=== PATIENT | male | born 1980 ===

== ENCOUNTER 2025-01-06 09:12 | Emergency (ER) | payer BC ==
[2025-01-06] MEDS ORDERED: Ketorolac 30 MG/ML SDV IVPUSH ONE (09:22)
[2025-01-06] MEDS: Sodium Chloride 0.9% 1,000 ML IV ONE (09:44)
[2025-01-06] MEDS: droPERidol 2.5 MG/ML SDV IVPUSH ONE (09:45)
[2025-01-06] MEDS: Pantoprazole 40 MG in Sodium Chloride 0.9% 10 ML IVPUSH ONE (09:46)
[2025-01-06 09:54] LABS: BASOPHILS ABSOLUTE AUTO 0.07 K/uL (0.00-0.20); BASOPHILS PERCENT AUTO 0.9 % (0.0-1.0); EOSINOPHILS ABSOLUTE AUTO 0.23 K/uL (0.00-0.45); EOSINOPHILS PERCENT AUTO 2.8 % (0.0-6.0); HEMATOCRIT 46.7 % (42.0-52.0); IMMATURE GRAN ABSOLUTE AUTO 0.05 K/uL (0.00-0.05); IMMATURE GRAN PERCENT AUTO 0.6 % (0.0-0.4); LYMPHOCYTES ABSOLUTE AUTO 1.68 K/uL (1.00-4.80); LYMPHOCYTES PERCENT AUTO 20.4 % (24.0-44.0); MEAN CORPUSCULAR HEMOGLOBIN 26.9 pg (28.0-32.0); MEAN CORPUSCULAR HGB CONC 32.1 g/dL (32.0-36.0); MEAN CORPUSCULAR VOLUME 83.7 fL (83.0-99.0); MEAN PLATELET VOLUME 10.9 fL (9.4-12.4); MONOCYTES ABSOLUTE AUTO 0.39 K/uL (0.00-0.80); MONOCYTES PERCENT AUTO 4.7 % (0.0-8.0); NEUTROPHILS ABSOLUTE AUTO 5.81 K/uL (1.80-7.70); NEUTROPHILS PERCENT AUTO 70.6 % (41.0-71.0); PLATELET COUNT,PLT 360 K/uL (150-400); RED BLOOD CELL COUNT 5.58 M/uL (4.52-5.90); WHITE BLOOD CELL COUNT,WBC 8.23 K/uL (3.9-11.3)
[2025-01-06] MEDS: Iopamidol 755 MG/ML 500 ML Multipack Bottle IVPUSH STA (10:00)
[2025-01-06 10:26] LABS: A/G RATIO 1.2 (0.9-1.6); ALBUMIN 4.3 g/dL (3.4-5.0); BILIRUBIN TOTAL 0.5 mg/dL (0.2-1.0); CALCIUM 9.4 mg/dL (8.5-10.1); CARBON DIOXIDE,CO2 29.1 mmol/L (21.0-32.0); CREATININE 1.1 mg/dL (0.8-1.3); EST CRCL DRUG DOSING (CG) 78.14 mL/min; POTASSIUM,K 4.1 mmol/L (3.5-5.1); PROTEIN TOTAL,TP 7.8 g/dL (6.4-8.2)
[2025-01-06] MEDS: Alum Hydrox/Mag Hydrox/Simeth 15 ML, Metoclopramide 5 MG, Lidocaine 2% 5 ML PO ONE (11:06)
== END 2025-01-06 11:21 | disposition home or self-care (01) ==
LOC: MW.ED 09:12
DX: K29.60 Other gastritis without bleeding (principal)
CPT/HCPCS: 36415; 74177; 80053; 83605; 83690; 85025; 96361; 96374; 96375; 99284; A9270; J1790; J2470; J7030; Q9967; 99283